=== PATIENT | male | born 1945 | race Caucasian/White ===

== ENCOUNTER 2020-12-03 19:51 | Emergency (ER) | payer MEDICARE ==
[2020-12-03 21:34] VITALS: BP 167/65
[2020-12-04] MEDS ORDERED: ACETAMINOPHEN 500 MG TAB PO ONE (01:15)
--- NOTE | 2020-12-04 01:57 | XRay Report ---
CHEST 2 VIEWS INDICATION / CLINICAL INFORMATION: Cough productive. COMPARISON: None available. FINDINGS: SUPPORT DEVICES: None. HEART / MEDIASTINUM: No significant abnormality. LUNGS / PLEURA: No significant pulmonary or pleural abnormality. No pneumothorax. ADDITIONAL FINDINGS: No significant additional findings. IMPRESSION: 1. No acute findings. Signer Name: Misha Simon MD Signed: 12/04/2020 1:53 AM Workstation Name: [id number]
--- NOTE | 2020-12-04 02:00 | XRay Report ---
NECK SOFT TISSUE 2 VIEW(S) INDICATION / CLINICAL INFORMATION: mass soft tissue neck COMPARISON: None available. FINDINGS: EPIGLOTTIS: No significant abnormality. RETROPHARYNGEAL SOFT TISSUES: No significant abnormality. AIRWAY: No significant abnormality. RADIOPAQUE FOREIGN BODY: None. SKELETAL SYSTEM: Mild lower cervical spondylosis with mildly prominent anterior syndesmophytes. ADDITIONAL FINDINGS: There is focal soft tissue fullness in the left supraclavicular region. IMPRESSION: 1. Left supraclavicular soft tissue fullness could represent mass or adenopathy. Signer Name: Misha Simon MD Signed: 12/04/2020 1:56 AM Workstation Name: [id number]
--- NOTE | 2020-12-04 02:20 | Emergency Department Report ---
ED General Adult HPI - General Chief complaint: Extremity Injury, Lower Stated complaint: BILATERAL ANKLE PAIN,DIZZINESS, LUMP ON LT SHOULDE Time Seen by Provider: 12/04/20 01:07 Source: patient Mode of arrival: Ambulatory Limitations: No Limitations - History of Present Illness Initial comments: Patient 75-year-old male with history of hypertension and gout patient followed by Dr. Redd as PCP. Patient seen by same on 12/03/2020. Treated for sinusitis. Patient presents tonight for bilateral lower ankle pain and swelling. Current medications include allopurinol, omeprazole, amlodipine, and, indomethacin. Patient advises he is presented to ED tonight for primary complaint of bilateral ankle pain. He denies fall injury or trauma. Patient denies fevers or chills. There is no ear or throat pain. Patient does endorse cough that is clear to yellow. And body aches. Patient denies chest pain, there is no shortness of breath, there is no nausea or vomiting, no diaphoresis. Symptoms are exacerbated by prolonged standing walking. Symptoms are relieved by offloading and rest. Patient advises taking medications as prescribed however, most medications have a fill date of 12/03/2020, including clindamycin p.o. - Related Data Home Medications Medication Instructions Recorded Confirmed Last Taken Amlodipine Besylate [Norvasc] 5 mg PO DAILY 05/09/13 05/09/13 05/08/13 09:00 Baclofen 10 mg PO BID 05/09/13 05/09/13 05/08/13 09:00 Ergocalciferol (Vitamin D2) 1.25 mg PO 1XW 05/09/13 05/09/13 05/08/13 09:00 [Vitamin D2] Indomethacin 25 mg PO DAILY 05/09/13 05/09/13 05/08/13 12:00 Metoclopramide HCl [Reglan] 5 mg PO BID 05/09/13 05/09/13 05/08/13 09:00 Omeprazole [Prilosec] 20 mg PO DAILY 05/09/13 05/09/13 05/08/13 09:00 allopurinoL [Zyloprim] 300 mg PO DAILY 05/09/13 05/09/13 05/08/13 20:00 Previous Rx's Medication Instructions Recorded Last Taken Type predniSONE [Deltasone] 40 mg PO QDAY 5 Days #10 tab 12/04/20 Unknown Rx Allergies Allergy/AdvReac Type Severity Reaction Status Date / Time No Known Allergies Allergy Unverified 05/04/13 16:31 ED Review of Systems ROS: Stated complaint: BILATERAL ANKLE PAIN,DIZZINESS, LUMP ON LT SHOULDE Other details as noted in HPI Constitutional: malaise Eyes: denies: eye pain, eye discharge, vision change ENT: congestion, other. denies: ear pain, throat pain, epistaxis Respiratory: cough. denies: shortness of breath, stridor, wheezing Cardiovascular: denies: chest pain, palpitations Endocrine: no symptoms reported Gastrointestinal: denies: abdominal pain, nausea, vomiting, diarrhea Genitourinary: denies: urgency, dysuria, frequency Musculoskeletal: arthralgia, myalgia. denies: back pain, joint swelling Skin: denies: rash, lesions Neurological: as per HPI, vertigo. denies: headache, weakness, numbness, paresthesias, confusion Psychiatric: denies: anxiety, depression Hematological/Lymphatic: denies: easy bleeding, easy bruising ED Past Medical Hx - Past Medical History Previous Medical History?: Yes Hx Hypertension: Yes (DENIES CHEST PAIN) Hx Renal Disease: No Hx Asthma: No - Social History Smoking Status: Never Smoker - Medications Home Medications: Home Medications Medication Instructions Recorded Confirmed Last Taken Type Amlodipine Besylate [Norvasc] 5 mg PO DAILY 05/09/13 05/09/13 05/08/13 09:00 History Baclofen 10 mg PO BID 05/09/13 05/09/13 05/08/13 09:00 History Ergocalciferol (Vitamin D2) 1.25 mg PO 1XW 05/09/13 05/09/13 05/08/13 09:00 History [Vitamin D2] Indomethacin 25 mg PO DAILY 05/09/13 05/09/13 05/08/13 12:00 History Metoclopramide HCl [Reglan] 5 mg PO BID 05/09/13 05/09/13 05/08/13 09:00 History Omeprazole [Prilosec] 20 mg PO DAILY 05/09/13 05/09/13 05/08/13 09:00 History allopurinoL [Zyloprim] 300 mg PO DAILY 05/09/13 05/09/13 05/08/13 20:00 History predniSONE [Deltasone] 40 mg PO QDAY 5 Days #10 tab 12/04/20 Unknown Rx ED Physical Exam - General Limitations: No Limitations General appearance: alert, in no apparent distress - Head Head exam: Present: atraumatic, normocephalic - Eye Eye exam: Present: normal appearance, PERRL, EOMI. Absent: conjunctival injection, nystagmus Pupils: Present: normal accommodation - ENT ENT exam: Present: mucous membranes moist, TM's normal bilaterally, normal external ear exam, other (bilat maxillary sinus pain to palpation ) - Expanded ENT Exam Expanded Ear exam: Present: normal external inspection Throat exam: Positive: normal inspection. Negative: tonsillar erythema, tonsillomegaly, tonsillar exudate - Neck Neck exam: Present: full ROM, lymphadenopathy. Absent: tenderness, meningismus, thyromegaly - Expanded Neck Exam Expanded Neck exam: Present: other (left lateral anterior cervical lymph moveable non tender ,no erythema, no dainage , no thrill , no bruit). Absent: tenderness, midline deformity, thyroid mass, carotid bruit, tracheal deviation - Respiratory Respiratory exam: Present: normal lung sounds bilaterally. Absent: wheezes, rales, rhonchi, stridor, chest wall tenderness - Cardiovascular Cardiovascular Exam: Present: regular rate, normal rhythm, normal heart sounds. Absent: systolic murmur, diastolic murmur, rubs, gallop - GI/Abdominal GI/Abdominal exam: Present: soft, normal bowel sounds. Absent: distended, tenderness, bruit, hernia - Rectal Rectal exam: Present: deferred - Extremities Exam Extremities exam: Present: normal inspection, full ROM, normal capillary refill, joint swelling (bilat ankle swelling no erythema distal pulses intact rom intact ). Absent: pedal edema, calf tenderness - Back Exam Back exam: Present: normal inspection, full ROM, tenderness. Absent: muscle spasm, paraspinal tenderness, vertebral tenderness - Neurological Exam Neurological exam: Present: alert, oriented X3, CN II-XII intact, normal gait, reflexes normal. Absent: motor sensory deficit - Expanded Neurological Exam Expanded Patient oriented to: Present: person, place, time Speech: Present: fluid speech Motor strength exam: RUE: 5, LUE: 5, RLE: 5, LLE: 5 DTR: ankle (R): 1+, ankle (L): 1+ Best Eye Response (Marah): (4) open spontaneously Best Motor Response (Marah): (6) obeys commands Best Verbal Response (Marah): (5) oriented [place] Total: 15 - Psychiatric Psychiatric exam: Present: normal affect, normal mood - Skin Skin exam: Present: warm, dry, intact, normal color. Absent: rash ED Course Vital Signs 12/03/20 21:32 Temperature 98.5 F Pulse Rate 76 Respiratory 18 Rate Blood Pressure 167/65 O2 Sat by Pulse 95 Oximetry ED Medical Decision Making - Radiology Data Radiology results: report reviewed, image reviewed INDICATION / CLINICAL INFORMATION: mass soft tissue neck COMPARISON: None available. FINDINGS: EPIGLOTTIS: No significant abnormality. RETROPHARYNGEAL SOFT TISSUES: No significant abnormality. AIRWAY: No significant abnormality. RADIOPAQUE FOREIGN BODY: None. SKELETAL SYSTEM: Mild lower cervical spondylosis with mildly prominent anterior syndesmophytes. ADDITIONAL FINDINGS: There is focal soft tissue fullness in the left supraclavicular region. IMPRESSION: 1. Left supraclavicular soft tissue fullness could represent mass or adenopathy. Signer Name: Misha Simon MD Signed: 12/04/2020 1:56 AM Workstation Name: [id number] Transcribed By: LOGAN Dictated By: Joseph Simon MD Electronically Authenticated By: Joseph Simon MD Signed Date/Time: 12/04/20155 DD/ 3 TD/TT: CHEST 2 VIEWS INDICATION / CLINICAL INFORMATION: Cough productive. COMPARISON: None available. FINDINGS: SUPPORT DEVICES: None. HEART / MEDIASTINUM: No significant abnormality. LUNGS / PLEURA: No significant pulmonary or pleural abnormality. No pneumothorax. ADDITIONAL FINDINGS: No significant additional findings. IMPRESSION: 1. No acute findings. Signer Name: Misha Simon MD Signed: 12/04/2020 1:53 AM Workstation Name: [id number] Transcribed By: DT Dictated By: Joseph Simon MD Electronically Authenticated By: Joseph Simon MD Signed Date/Time: 12/04/20152 DD/ 0 TD/TT: - Medical Decision Making Chest x-ray no infiltrates no opacities, soft tissue neck x-ray anterior auricle lymph versus suprapubic mass. Masses soft nontender movable no erythema no drainage. Airway is patent there is no stridor there is no tracheal deviation carotid pulses are intact +2 bilateral range of motion is intact and unrestricted, gout pain is improved with medications given in ED. Plan DC to home with prednisone prescription. Patient advised to hold allopurinol until after acute exacerbation is over. Take indomethacin as previously supposed prescribed by Dr. Redd, follow-up primary care doctor in 2 to 3 days., Return to emergency department should symptoms worsen. Critical care attestation.: If time is entered above; I have spent that time in minutes in the direct care of this critically ill patient, excluding procedure time. ED Disposition Clinical Impression: Exacerbation of gout Disposition: DC-01 TO HOME OR SELFCARE Is pt being admited?: No Does the pt Need Aspirin: No Condition: Stable Instructions: Low-Purine Eating Plan Additional Instructions: Take all medications as prescribed, follow up with your doctor in 2 to 3 days. Return to emergency should symptoms worsen Prescriptions: predniSONE [Deltasone] 40 mg PO QDAY 5 Days #10 tab Referrals: DANIEL REDD MD [Primary Care Provider] - 3-5 Days Forms: Work/School Release Form Time of Disposition: 03:22
[2020-12-04] MEDS ORDERED: traMADol 50 MG TAB PO ONE (02:43)
[2020-12-04] MEDS ORDERED: predniSONE 20 MG TAB PO ONE (02:43)
== END 2020-12-04 04:00 | disposition home or self-care (01) ==
LOC: ED 19:51
DX: M10.9 Gout, unspecified (principal); I10 Essential (primary) hypertension
CPT/HCPCS: 70360; 71046; 99283; J7512